=== PATIENT | male | born 1955 | race Caucasian/White ===

== ENCOUNTER 2017-05-25 21:08 | Emergency (ER) | payer OTHER ==
[~2017-05-25] VITALS: Ht 190.5 cm; Wt 114.9 kg
[2017-05-25 21:11] VITALS: TEMP 36.9; Ht 190.5 cm; Wt 114.9 kg
[2017-05-25] MEDS ORDERED: ONDANSETRON INJ 2 MG/ML 2 ML VIAL IV STA (21:37)
[2017-05-25] MEDS ORDERED: KETOROLAC TROMETHAMINE 30 MG/ML VIAL IV STA (21:37)
[2017-05-25] MEDS ORDERED: SODIUM CHLORIDE 0.9% 1000ML 1,000 ML IV STA (21:37)
--- NOTE | 2017-05-25 21:45 | EMERGENCY ROOM VISIT NOTE ---
History Report prepared by Tayla: Vu Vergara Under the Supervision of: Dr. Jeovany Clarke M.D. First contact with patient: 21:21 Chief Complaint: GI ASSESSMENT Stated Complaint: NAUSEA, VOMITING,DIARRHEA Nursing Triage Summary: Pt c/o n/v, body aches, chills since about 1100 today. Pt states that his doctor was concerned about pneumonia and reports hx of it and states "it nearly killed me". Pt denies cough, chest pain, SOB, diarrhea, syncope. History of Present Illness The patient is a 61 year old male who presents to the Emergency Room with complaints of persistent nausea and vomiting starting this morning around 1100 while in faith. The patient states that he started having abdominal pain, nausea, and shortness of breath. He then got home and had a large bowel movement , and then afterwards he started to vomit. he notes that his nausea is worse with walking around. The patient denies any hematochezia, melena, back pain, chest pain, cough, diarrhea, and urinary symptoms. He notes that he is unable to keep anything down without vomiting. The patient has a history of pneumonia in 2013. He denies any underlying pulmonary disease, and he takes blood pressure medications. Source of History: patient Onset: 1100 Position: other (global) Quality: other (nausea) Timing: other (persistent) Modifying Factors (Worsening): other (walking around) Associated Symptoms: + SOB, + vomiting, + abdominal pain, No cough, No chest pain, No back pain, No melena, No hematochezia, No diarrhea, No urinary symptoms Review of Systems See HPI for pertinent positives & negatives. A total of 10 systems reviewed and were otherwise negative. Past Medical & Surgical Medical Problems: (1) HTN (hypertension) Old medical records were reviewed. Nurse's notes were reviewed and I agree with. Social History Smoking Status: Never Smoker Alcohol Use: none Drug Use: none Marital Status: in relationship Occupation Status: retired Current/Historical Medications Scheduled Ascorbic Acid (Vitamin C), 1,000 MG PO DAILY Cholecalciferol (Vitamin D3), 1 TAB PO DAILY Metoprolol Tartrate (Lopressor) (Lopressor), 100 MG PO BID Allergies Coded Allergies: Codeine (Verified Adverse Reaction, Severe, GI SYMPTOMS, 05/25/17) Morphine (Verified Adverse Reaction, Severe, GI SYMPTOMS, 12/23/17) Physical Exam Vital Signs Date Time Temp Pulse Resp B/P (MAP) Pulse Ox O2 Delivery O2 Flow Rate FiO2 05/25/17 23:37 74 18 115/79 98 Room Air 05/25/17 22:33 73 18 128/72 96 Room Air 05/25/17 21:11 36.9 82 18 147/74 97 Room Air Physical Exam General: Mildly ill appearing non-toxic older male in no acute distress. HEENT: Normal cephalic atraumatic. Pupils are equal round and reactive to light. Extraocular movements are intact. Oropharynx is pink with moist mucous membranes. No swelling of the mouth lips or tongue. Neck: Supple with a midline trachea. No meningeal signs or stiffness, no JVD or bruits. No Stridor. Chest: Clear to auscultation bilaterally. No wheezes or rhonchi. No increased work of breathing. Heart: regular rate and rhythm. Abdomen: Soft nontender, nondistended without rebound guarding or rigidity. Extremities: No cyanosis clubbing or edema. No calf tenderness or assymetry Spine/Back. Non tender to palpation. No CVA tenderness Skin: Good turgor without rashes. Neurologic exam: Cranial nerves two through 12 are intact. Motor and sensation are intact and symmetrical throughout. Medical Decision & Procedures ER Provider Diagnostic Interpretation: Radiology results as stated below per my review and radiologist interpretation: CHEST ONE VIEW PORTABLE HISTORY: Atypical CHEST PAIN COMPARISON: None. FINDINGS: The lungs are clear. Cardiac silhouette is normal in size. No pleural effusions. No pneumothorax. IMPRESSION: No acute process. Electronically signed by: Dinesh Matos M.D. 05/25/2017 10:29 PM Dictated Date/Time: 05/25/2017 10:29 PM Laboratory Results 05/25/17 21:47 Red Blood Count 5.28, Mean Corpuscular Volume 83.3, Mean Corpuscular Hemoglobin 29.2, Mean Corpuscular Hemoglobin Concent 35.0, Mean Platelet Volume 9.8, Neutrophils (%) (Auto) 88.9, Lymphocytes (%) (Auto) 7.1, Monocytes (%) (Auto) 3.3, Eosinophils (%) (Auto) 0.1, Basophils (%) (Auto) 0.1, Neutrophils # (Auto) 11.48, Lymphocytes # (Auto) 0.92, Monocytes # (Auto) 0.42, Eosinophils # (Auto) 0.01, Basophils # (Auto) 0.01 05/25/17 21:47 Test 05/25/17 21:47 05/25/17 22:05 05/25/17 22:30 White Blood Count 12.90 K/uL (4.8-10.8) Red Blood Count 5.28 M/uL (4.7-6.1) Hemoglobin 15.4 g/dL (14.0-18.0) Hematocrit 44.0 % (42-52) Mean Corpuscular Volume 83.3 fL (80-100) Mean Corpuscular Hemoglobin 29.2 pg (25-34) Mean Corpuscular Hemoglobin Concent 35.0 g/dl (32-36) Platelet Count 218 K/uL (130-400) Mean Platelet Volume 9.8 fL (7.4-10.4) Neutrophils (%) (Auto) 88.9 % Lymphocytes (%) (Auto) 7.1 % Monocytes (%) (Auto) 3.3 % Eosinophils (%) (Auto) 0.1 % Basophils (%) (Auto) 0.1 % Neutrophils # (Auto) 11.48 K/uL (1.4-6.5) Lymphocytes # (Auto) 0.92 K/uL (1.2-3.4) Monocytes # (Auto) 0.42 K/uL (0.11-0.59) Eosinophils # (Auto) 0.01 K/uL (0-0.5) Basophils # (Auto) 0.01 K/uL (0-0.2) RDW Standard Deviation 39.5 fL (36.4-46.3) RDW Coefficient of Variation 13.2 % (11.5-14.5) Immature Granulocyte % (Auto) 0.5 % Immature Granulocyte # (Auto) 0.06 K/uL (0.00-0.02) Anion Gap 8.0 mmol/L (3-11) Est Creatinine Clear Calc Drug Dose 85.8 ml/min Estimated GFR () 73.2 Estimated GFR (Non- 63.1 BUN/Creatinine Ratio 16.2 (10-20) Calcium Level 8.9 mg/dl (8.5-10.1) Total Bilirubin 0.7 mg/dl (0.2-1) Direct Bilirubin 0.1 mg/dl (0-0.2) Aspartate Amino Transf (AST/SGOT) 17 U/L (15-37) Alanine Aminotransferase (ALT/SGPT) 33 U/L (12-78) Alkaline Phosphatase 71 U/L (45-117) Troponin I < 0.015 ng/ml (0-0.045) Total Protein 7.7 gm/dl (6.4-8.2) Albumin 4.1 gm/dl (3.4-5.0) Lipase 106 U/L (73-393) Influenza Type A Antigen Neg for Influ A (NEG) Influenza Type B Antigen Neg for Influ B (NEG) Urine Color YELLOW Urine Appearance CLEAR (CLEAR) Urine pH 5.0 (4.5-7.5) Urine Specific [place] 1.029 (1.000-1.030) Urine Protein NEG (NEG) Urine Glucose (UA) NEG (NEG) Urine Ketones NEG (NEG) Urine Occult Blood NEG (NEG) Urine Nitrite NEG (NEG) Urine Bilirubin NEG (NEG) Urine Urobilinogen NEG (NEG) Urine Leukocyte Esterase NEG (NEG) Laboratory studies as stated above per my review. Medications Administered Medications (Trade) Dose Ordered Sig/Zaki Route Start Time Stop Time Status Last Admin Dose Admin Sodium Chloride 1,000 ml @ 999 mls/hr Q1H1M STAT IV 05/25/17 21:37 05/25/17 22:37 DC 05/25/17 21:59 999 MLS/HR Ondansetron HCl (Zofran Inj) 4 mg NOW STAT IV 05/25/17 21:37 05/25/17 21:39 DC 05/25/17 22:00 4 MG Ketorolac Tromethamine (Toradol Inj) 30 mg NOW STAT IV 05/25/17 21:37 05/25/17 21:40 DC 05/25/17 22:00 30 MG Ondansetron HCl (ZOFRAN ODT 4MG Home Pack) 1 homepack UD ONCE PO 05/25/17 23:30 05/25/17 23:31 DC 05/25/17 23:43 1 HOMEPACK ECG Indication: nausea, vomiting Rate (beats per minute): 77 Rhythm: normal sinus Findings: no acute ischemic change, no ectopy Comparison ECG Date: no prior available ED Course 2120: Past medical records reviewed. The patient was evaluated in room A4, and a complete history and physical examination were performed. 2137: Toradol 30mg IV, Zofran 4mg IV, Sodium Chloride 1000 ml @ 999 mls/hr IV 2205: I reevaluated the patient, and he was doing well. 2221: I reassessed the patient, and he denies any abdominal pain, and he is waiting for his fluids. 2328: Upon reevaluation, the patient is feeling better and wants to go home. He denies any abdominal or chest pain. I discussed the results and treatment plan with him. He verbalized agreement of the treatment plan. The patient was discharged home. 2330: Zofran ODT 4mg Home Pack PO Medical Decision Differentials include, but are not limited to; viral illness, dehydration, influenza, infection, pneumonia, cardiac disease, and electrolyte or metabolic abnormality. This patient comes in as described above. He was placed in room A4. He has had nausea and generalized malaise off and on since this morning. He's had no cough but did feel mildly short of breath at one point but had no chest pain. No dysuria or hematuria. IV access established multiple blood tests was obtained. He was hydrated with IV normal saline and was also given Toradol 30 milligrams IV and Zofran 4 milligrams IV for pain and nausea management. Urinalysis and culture was obtained as well as multiple blood testing and chest x-ray. Chest x-ray was unremarkable. Urinalysis was unremarkable with a urine culture pending. EKG does not suggest cardiac disease or arrhythmia. Troponin is also within normal limits. He's had no chest pain. His abdomen is benign and nontender. His white count is only minimally elevated. He has no significant electrolyte or metabolic abnormalities. He is feeling much better after receiving IV hydration. This may have been a GI viral or foodborne illness. He feels good and would like to go home with this is reasonable at this point he was given home pack of Zofran that he can use if needed for nausea or vomiting. He should rest and drink plenty of fluids return if: Worsening of symptoms, not tolerating fluids, any problems or concerns. He was happy with plan and discharged to home. Medication Reconcilliation Current Medication List: was personally reviewed by me Blood Pressure Screening Patient's blood pressure: Elevated blood pressure Blood pressure disposition: Elevated BP felt to be situational Impression Primary Impression: Vomiting Scribe Attestation The scribe's documentation has been prepared under my direction and personally reviewed by me in its entirety. I confirm that the note above accurately reflects all work, treatment, procedures, and medical decision making performed by me. Departure Information Dispostion Home / Self-Care Forms HOME CARE DOCUMENTATION FORM, IMPORTANT VISIT INFORMATION Patient Instructions My [facility] Additional Instructions Rest. Drink plenty of fluids. Use Zofran 4 mg every 6 hours if needed Return if: Worsening of symptoms, fever or chills, chest pain, shortness of breath, abdominal pain, any new problems or concerns Follow-up with your doctor when he home for recheck or return here at any point if symptoms worsen
[2017-05-25 22:00] LABS: BASO % 0.1 %; BASO ABS # 0.01 K/uL (0-0.2); COMPLETE YES; EOS % 0.1 %; IG% 0.5 %; LYMPH % 7.1 %; LYMPH ABS # 0.92 K/uL (1.2-3.4); MEAN CELL VOLUME 83.3 fL (80-100); MEAN CORPUSCULAR HEMOGLOBIN 29.2 pg (25-34); MEAN PLATELET VOLUME 9.8 fL (7.4-10.4); MONO % 3.3 %; NEUT % 88.9 %; PLATELET COUNT 218 K/uL (130-400); RED BLOOD COUNT 5.28 M/uL (4.7-6.1)
[2017-05-25 22:17] LABS: ALT/SGPT 33 U/L (12-78); BLOOD UREA NITROGEN 20 mg/dl (7-18); BUN/CREATININE RATIO 16.2 (10-20); CALCIUM 8.9 mg/dl (8.5-10.1); CARBON DIOXIDE 28 mmol/L (21-32); CHLORIDE 102 mmol/L (98-107); CREATININE 1.22 mg/dl (0.60-1.40); GLUCOSE 111 mg/dl (70-99); SODIUM 137 mmol/L (136-145)
[2017-05-25 22:19] LABS: ALKALINE PHOSPHATASE 71 U/L (45-117); AST/SGOT 17 U/L (15-37)
--- NOTE | 2017-05-25 22:30 | DIAGNOSTIC IMAGING REPORT ---
CHEST ONE VIEW PORTABLE HISTORY: Atypical CHEST PAIN COMPARISON: None. FINDINGS: The lungs are clear. Cardiac silhouette is normal in size. No pleural effusions. No pneumothorax. IMPRESSION: No acute process. Electronically signed by: Dinesh Matos M.D. 05/25/2017 10:29 PM Dictated Date/Time: 05/25/2017 10:29 PM
[2017-05-25 22:48] LABS: URINE APPEARANCE CLEAR (CLEAR); URINE BILIRUBIN NEG (NEG); URINE COLOR YELLOW; URINE NITRITE NEG (NEG); URINE SPECIFIC GRAVITY 1.029 (1.000-1.030); UROBILINOGEN NEG (NEG)
[2017-05-25] MEDS ORDERED: ASCO10003 PO (22:50)
[2017-05-25] MEDS ORDERED: METO100T14 PO (22:50)
[2017-05-25] MEDS ORDERED: CHOL1000 PO (22:50)
[2017-05-25 22:51] LABS: MANUAL MICROSCOPIC REQUIRED? NO; REVIEW REQ? NO
[2017-05-25] MEDS ORDERED: ONDANSETRON HOME PACK 4MG OD TAB PO ONE (23:30)
[2017-05-25 23:37] VITALS: BP 115/79; PULSE 74; O2SAT 98
== END 2017-05-25 23:42 | disposition home or self-care (01) ==
LOC: C.EDB 21:09 → C.EDA 23:42
DX: R11.2 Nausea with vomiting, unspecified (principal); Z87.01 Personal history of pneumonia (recurrent); I10 Essential (primary) hypertension; Z79.899 Other long term (current) drug therapy